=== PATIENT | male | born 1970 | race Caucasian/White ===

== ENCOUNTER 2016-12-30 09:43 | Emergency (ER) | payer OTHER ==
[~2016-12-30] VITALS: Ht 175.3 cm; Wt 100.0 kg
[~2016-12-30 09:43] MED LIST: CITA-48 PO; LAMO100 PO; LISI-360 PO; PRAZ2 PO; SIMV10 PO
[2016-12-30 09:45] VITALS: BP 128/78; PULSE 92; RESP 14; TEMP 98.7; O2SAT 99
[2016-12-30] MEDS ORDERED: CITA10TA4 PO (10:12)
[2016-12-30] MEDS ORDERED: SIMV10TA PO (10:12)
[2016-12-30] MEDS ORDERED: LAMO150T PO (10:12)
[2016-12-30] MEDS ORDERED: SERT25TA83 PO (10:12)
[2016-12-30] MEDS ORDERED: LISI10TA3 PO (10:12)
[2016-12-30] MEDS ORDERED: PRAZ2CAP PO (10:12)
--- NOTE | 2016-12-30 10:13 | PD ---
HPI Chief Complaint: Complaint Time Seen by Provider: 10:12 Travel History International Travel<30 days: No Contact w/Intl Traveler<30days: No Traveled to known affect area: No History of Present Illness HPI Patient is a 46-year-old male with a history of lymphoma now and really admission presents emergency department for evaluation of right testicular pain radiating up into his right groin for the past few days. He called his oncologist who recommended he come in emergency department rule out torsion and recurrence of tumor. Patient denies any dysuria denies any history for STDs. States the pain is mild radiating up his right coronary and, context as above, associated signs symptoms as above. PFSH Past Medical History Cancer: No Cardiovascular Problems: No High Cholesterol: Yes Diabetes: No Endocrine: No Gastrointestinal Disorders: Yes (IBS- DIVERTICULITIS) Genitourinary: No Hepatitis: No Hiatal Hernia: No Hypertension: Yes Immune Disorder: No Musculoskeletal: No Neurologic: No Psychiatric: Yes (PTSD) Reproductive: No Respiratory: No Thyroid Disease: No Past Surgical History Body Medical Devices: NONE Eye Surgery: Yes (LASIK) Oral Surgery: Yes (SINSUS SX) Other Surgery: Yes (SINUS SURGERY, PORT REMOVED ) Social History Alcohol Use: Yes (OCCASSIONALLY) Tobacco Use: No Substance Use: No Allergies-Medications (Allergen,Severity, Reaction): Coded Allergies: No Known Allergies (Verified , 07/09/14) Reported Meds & Prescriptions Reported Meds & Active Scripts Active Doxycycline (Doxycycline (Monohydrate)) 100 Mg Cap 100 Mg PO BID 10 Days Reported Sertraline (Sertraline HCl) 25 Mg Tab 25 Mg PO DAILY Citalopram (Citalopram Hydrobromide) 10 Mg Tab 10 Mg PO DAILY Simvastatin 10 Mg Tab 10 Mg PO DAILY Prazosin (Prazosin HCl) 2 Mg Cap 2 Mg PO DAILY Lisinopril 10 Mg Tab 10 Mg PO DAILY Lamotrigine 150 Mg Tab 150 Mg PO DAILY Review of Systems Except as stated in HPI: all other systems reviewed are Neg Physical Exam Narrative GENERAL: Well-developed well-nourished no distress SKIN: Focused skin assessment warm/dry. HEAD: Atraumatic. Normocephalic. EYES: Pupils equal and round. No scleral icterus. No injection or drainage. ENT: No nasal bleeding or discharge. Mucous membranes pink and moist. NECK: Trachea midline. No JVD. CARDIOVASCULAR: Regular rate and rhythm. No murmur appreciated. RESPIRATORY: No accessory muscle use. Clear to auscultation. Breath sounds equal bilaterally. GASTROINTESTINAL: Abdomen soft, non-tender, nondistended. Hepatic and splenic margins not palpable. GENITOURINARY: There is tenderness over the right epididymis, no masses no lesion no hernia felt. No lesions, circumcised penis. MUSCULOSKELETAL: No obvious deformities. No clubbing. No cyanosis. No edema. NEUROLOGICAL: Awake and alert. No obvious cranial nerve deficits. Motor grossly within normal limits. Normal speech. PSYCHIATRIC: Appropriate mood and affect; insight and judgment normal. Data Data Last Documented VS Vital Signs Date Time Temp Pulse Resp B/P (MAP) Pulse Ox O2 Delivery O2 Flow Rate FiO2 12/30/16 11:58 12/30/16 09:45 98.7 92 14 99 Orders Orders Us Testicles W Doppler (12/30/16 ) Urinalysis - C+S If Indicated (12/30/16 10:12) Gc And Chlamydia Pcr (12/30/16 10:12) Ed Discharge Order (12/30/16 11:32) Labs Laboratory Tests Test 12/30/16 10:32 Urine Color YELLOW Urine Turbidity CLEAR Urine pH 5.5 Urine Specific [place] 1.020 Urine Protein NEG mg/dL Urine Glucose (UA) NEG mg/dL Urine Ketones TRACE mg/dL Urine Occult Blood NEG Urine Nitrite NEG Urine Bilirubin NEG Urine Urobilinogen LESS THAN 2.0 MG/DL Urine Leukocyte Esterase NEG Urine RBC 0-1 /hpf Urine WBC 0-2 /hpf Urine Squamous Epithelial Cells 0-5 /hpf Urine Bacteria NONE /hpf Urine Mucus FEW /lpf Microscopic Urinalysis Comment CULT NOT INDICATED Chlamydia trachomatis DNA (PCR) NOT DETECTED Neisseria gonorrhoeae DNA (PCR) NOT DETECTED MDM Medical Decision Making Medical Screen Exam Complete: Yes Emergency Medical Condition: Yes Differential Diagnosis Epididymitis, torsion, orchitis, tumor seems unlikely. Narrative Course Patient roomed emergency department, physical exam consistent with epididymitis , no tumor felt. Ultrasound confirms probable epididymitis, we'll place on antibiotics, discussed follow-up with his primary care physician his oncologist. He stable for discharge. Diagnosis Primary Impression: Epididymitis Med/Other Pt SpecificInfo: Prescription(s) given Scripts Doxycycline (Monohydrate) (Doxycycline) 100 Mg Cap 100 MG PO BID for 10 Days, 0 Refills Prov: Win Barrientos MD 12/30/16 Disposition: 01 DISCHARGE HOME Condition: Stable Win Barrientos MD Dec 30, 2016 10:13
[2016-12-30 10:50] LABS: BLOOD, URINE NEG (NEG); GLUCOSE,URINE NEG (NEG); KETONE, URINE TRACE mg/dL (NEG); NITRITE,URINE NEG (NEG); PH, URINE 5.5 (5.0-8.5); URINE COLOR YELLOW (YELLW/STRAW)
[2016-12-30 11:11] LABS: MUCUS URINE FEW /lpf (OCC)
[2016-12-30 11:12] LABS: COMMENT (UR) CULT NOT INDICATED; CULTURE IF INDICATED CULT NOT INDICATED; RBC, URINE 0-1 /hpf (0-3); SQUAMOUS EPITHELIAL CELL URINE 0-5 /hpf (0-5); WBC, URINE 0-2 /hpf (0-5)
--- NOTE | 2016-12-30 11:24 | RADRPT ---
EXAM DATE/TIME: 12/30/2016 10:45 [facility] COMPARISON: No previous studies available for comparison. INDICATIONS : Right testicular pain. MEDICAL HISTORY : Hypercholesterolemia. Hypertension. Diverticulitis. SURGICAL HISTORY : None. Sinus surgery. Right rotator cuff surgery. Left leg surgery. ENCOUNTER: Initial ACUITY: 3 days PAIN SCORE: 7/10 LOCATION: Bilateral testicles. MEASUREMENTS: RIGHT TESTICLE: 4.0 x 2.8 x 2.0cm LEFT TESTICLE: 3.3 x 2.7 x 2.6cm FINDINGS: RIGHT TESTICLE: Homogeneous echotexture without intra or extratesticular mass. Blood flow is symmetric and within no rmal limits. No varicocele. There is a small hydrocele. The right epididymis appears mildly hyperech oic and has increased vascularity along the tail region. LEFT TESTICLE: Homogeneous echotexture without intra or extratesticular mass. Blood flow is symmetric and within no rmal limits. No varicocele. There is a small hydrocele. Epididymis is within normal limits. SCROTUM: Within normal limits. CONCLUSION: 1. The testicles are symmetric and unremarkable in appearance. 2. The right epididymis appears hyperechoic and there is apparent increased vascularity along the sol l. This could be secondary to epididymitis. Silviano Warren MD on December 30, 2016 at 11:16 Board Certified Radiologist. This report was verified electronically.
[2016-12-30] MEDS ORDERED: DOXY1CAP91 PO (11:32)
[2016-12-30 13:43] LABS: CHLAMYDIA PCR NOT DETECTED (NOT DETECT); NEISSERIA PCR NOT DETECTED (NOT DETECT)
== END 2016-12-30 11:59 | disposition home or self-care (01) ==
LOC: NEPE 09:43
DX: N45.1 Epididymitis (principal); I10 Essential (primary) hypertension; E78.00 Pure hypercholesterolemia, unspecified; Z85.72 Personal history of non-Hodgkin lymphomas; Z87.19 Personal history of other diseases of the digestive system; Z86.59 Personal history of other mental and behavioral disorders
CPT/HCPCS: 76870; 81001; 87491; 87591; 93975; 99284